=== PATIENT | female | born 1980 ===

== ENCOUNTER 2020-10-26 09:39 | Day surgery (SDC) | payer OTHER | END 2020-10-26 15:45 | disposition home or self-care (01) | LOC: AMB-ENDOS 09:39 | PROVIDERS: ATTEND Colon & Rectal Surgery | DX: K62.1 Rectal polyp (principal); K64.8 Other hemorrhoids; Z12.11 Encounter for screening for malignant neoplasm of colon; Z20.822 Contact with and (suspected) exposure to COVID-19 ==